=== PATIENT | male | born 1985 | race American Indian/Alaskan Native ===

== ENCOUNTER 2021-10-04 11:30 | Emergency (ER) | payer SELFPAY ==
[2021-10-04] MEDS ORDERED: HYDROcodone/ACETAMINOPHEN 5-325 MG TAB PO ONE (13:58)
[2021-10-04] MEDS ORDERED: IBUPROFEN 800 MG TAB PO ONE (13:58)
--- NOTE | 2021-10-04 14:49 | XRay Report ---
RIGHT KNEE 3 VIEWS INDICATION / CLINICAL INFORMATION: knee pain. COMPARISON: None available. FINDINGS: BONES / JOINT(S): No acute fracture or subluxation. 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 SOFT TISSUES: Small joint effusion. ADDITIONAL FINDINGS: None. Signer Name: Brayden Montemayor MD Signed: 10/04/2021 2:45 PM Workstation Name: [id number]
--- NOTE | 2021-10-04 14:49 | XRay Report ---
RIGHT ANKLE 3 VIEWS INDICATION / CLINICAL INFORMATION: ankle pain. COMPARISON: None available. FINDINGS: BONES / JOINT(S): No acute fracture or subluxation. No significant arthritis. SOFT TISSUES: No significant abnormality. ADDITIONAL FINDINGS: None. Signer Name: Brayden Montemayor MD Signed: 10/04/2021 2:45 PM Workstation Name: [id number]
--- NOTE | 2021-10-04 16:28 | Emergency Department Report ---
ED General Adult HPI - General Chief complaint: Extremity Problem,Nontraumatic Stated complaint: LEG PAIN Time Seen by Provider: 10/04/21 13:28 Source: patient, EMS Mode of arrival: Stretcher Limitations: No Limitations - History of Present Illness Initial comments: 36-year-old male with no significant past medical history reports to the ER with complaints of right knee and right ankle pain. Patient denies any recent injury. Patient reported he has been walking a lot recently as he has been trying to find a hotel to stay in. No other acute signs or symptoms reported at this time. Severity scale (0 -10): 10 - Related Data Previous Rx's Medication Instructions Recorded Last Taken Type Ibuprofen [Motrin] 800 mg PO Q8HR PRN 6 Days #18 10/04/21 Unknown Rx tablet Allergies Allergy/AdvReac Type Severity Reaction Status Date / Time No Known Allergies Allergy Verified 10/04/21 11:34 ED Review of Systems ROS: Stated complaint: LEG PAIN Other details as noted in HPI Comment: All other systems reviewed and negative Musculoskeletal: arthralgia, other (Right knee and right ankle pain) ED Past Medical Hx - Past Medical History Previous Medical History?: No - Medications Home Medications: Home Medications Medication Instructions Recorded Confirmed Last Taken Type Ibuprofen [Motrin] 800 mg PO Q8HR PRN 6 Days #18 10/04/21 Unknown Rx tablet ED Physical Exam - General Limitations: No Limitations General appearance: alert, in no apparent distress - Head Head exam: Present: atraumatic, normocephalic - Eye Eye exam: Present: normal appearance - ENT ENT exam: Present: mucous membranes moist - Neck Neck exam: Present: normal inspection - Respiratory Respiratory exam: Present: normal lung sounds bilaterally. Absent: respiratory distress - Cardiovascular Cardiovascular Exam: Present: regular rate, normal rhythm. Absent: systolic murmur, diastolic murmur, rubs, gallop - GI/Abdominal GI/Abdominal exam: Present: soft, normal bowel sounds - Rectal Rectal exam: Present: deferred - Extremities Exam Extremities exam: Present: normal inspection, other (Right knee tenderness noted with no swelling range of motion intact. Right ankle tenderness noted with no swelling range of motion intact. No deformity is noted to ankle nor knee of right extremity.). Absent: joint swelling - Back Exam Back exam: Present: normal inspection - Neurological Exam Neurological exam: Present: alert, oriented X3 - Psychiatric Psychiatric exam: Present: normal affect, normal mood - Skin Skin exam: Present: warm, dry, intact, normal color. Absent: rash ED Course Vital Signs 10/04/21 10/04/21 11:33 16:57 Temperature 98.9 F Pulse Rate 102 H 62 Respiratory 16 Rate Blood Pressure 108/95 147/98 [Left] O2 Sat by Pulse 98 100 Oximetry ED Medical Decision Making - Radiology Data [address] [address] XRay Report Signed Patient: ALISTAIR GUNTER MR#: [id number] 7 : 1985 Acct:[id number] Age/Sex: 36 / M ADM Date: 10/04/21 Loc: ED Attending Dr: Ordering Physician: ALEXIA MICHEL NP Date of Service: 10/04/21 Procedure(s): XR knee 3V RT Accession Number(s): [id number] cc: ALEXIA MICHEL NP Fluoro Time In Minutes: RIGHT KNEE 3 VIEWS INDICATION / CLINICAL INFORMATION: knee pain. COMPARISON: None available. FINDINGS: BONES / JOINT(S): No acute fracture or subluxation. 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 SOFT TISSUES: Small joint effusion. ADDITIONAL FINDINGS: None. Signer Name: Brayden Montemayor MD Signed: 10/04/2021 2:45 PM Workstation Name: [id number] Transcribed By: ES Dictated By: Brayden Montemayor MD Electronically Authenticated By: Brayden Montemayor MD Signed Date/Time: 10/04/211444 DD/ 44 TD/TT: [address] [address] XRay Report Signed Patient: ALISTAIR GUNTER MR#: [id number] 7 : 1985 Acct:[id number] Age/Sex: 36 / M ADM Date: 10/04/21 Loc: ED Attending Dr: Ordering Physician: ALEXIA MICHEL NP Date of Service: 10/04/21 Procedure(s): XR ankle 3+V RT Accession Number(s): [id number] cc: ALEXIA MICHEL NP Fluoro Time In Minutes: RIGHT ANKLE 3 VIEWS INDICATION / CLINICAL INFORMATION: ankle pain. COMPARISON: None available. FINDINGS: BONES / JOINT(S): No acute fracture or subluxation. No significant arthritis. SOFT TISSUES: No significant abnormality. ADDITIONAL FINDINGS: None. Signer Name: Brayden Montemayor MD Signed: 10/04/2021 2:45 PM Workstation Name: [id number] Transcribed By: ES Dictated By: Brayden Montemayor MD Electronically Authenticated By: Brayden Montemayor MD Signed Date/Time: 10/04/211444 DD/ 42 TD/TT: - Medical Decision Making 36-year-old male with no significant past medical history reports to the ER with complaints of right knee and right ankle pain. Patient denies any recent injury. Patient reported he has been walking a lot recently as he has been trying to find a hotel to stay in. No other acute signs or symptoms reported at this time On physical exam right knee right ankle tenderness noted. No swelling to either the knee nor ankle. No deformity noted to either ankle or right knee. No other acute clinical findings noted. X-ray of knee and ankle with no acute process noted. Patient informed of imaging results. Patient stable for discharge home. Patient sent home with oral medication for pain. Patient agrees with plan of care verbalized understanding. Patient informed if symptoms are to get worse to report to the ER. Vital Signs 10/04/21 10/04/21 11:33 16:57 Temperature 98.9 F Pulse Rate 102 H 62 Respiratory 16 Rate Blood Pressure 108/95 147/98 [Left] O2 Sat by Pulse 98 100 Oximetry Critical care attestation.: If time is entered above; I have spent that time in minutes in the direct care of this critically ill patient, excluding procedure time. ED Disposition Clinical Impression: Right ankle pain Qualifiers: Chronicity: acute Qualified Code(s): M25.571 - Pain in right ankle and joints of right foot Right knee pain Qualifiers: Chronicity: acute Qualified Code(s): M25.561 - Pain in right knee Disposition: 01 HOME / SELF CARE / HOMELESS Is pt being admited?: No Condition: Stable Instructions: Acute Knee Pain, Adult, Joint Pain Prescriptions: Ibuprofen [Motrin] 800 mg PO Q8HR PRN 6 Days #18 tablet PRN Reason: Pain , Severe (7-10) Referrals: KALPANA GUZMAN MD [Primary Care Provider] - 3-5 Days
[2021-10-04 16:58] VITALS: BP 147/98
== END 2021-10-04 16:57 | disposition home or self-care (01) ==
LOC: ED 11:30
DX: M25.571 Pain in right ankle and joints of right foot (principal); M25.561 Pain in right knee
CPT/HCPCS: 99283